=== PATIENT | female | born 2000 | race Two or more races ===

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

== ENCOUNTER 2021-03-14 09:50 | Emergency (ER) | payer OTHER ==
[2021-03-14] MEDS ORDERED: Ketorolac 30 MG/ML SDV IM ONE (10:59)
--- NOTE | 2021-03-14 11:01 | EDM.PDOC ---
ED HPI GENERAL MEDICAL PROBLEM - General Chief Complaint: Lower Extremity Injury/Pain Stated Complaint: RIGHT FOOT PAIN Time Seen by Provider: 03/14/21 10:57 Source of Information: Reports: Patient, Family, RN Notes Reviewed History Limitations: Reports: No Limitations - History of Present Illness INITIAL COMMENTS - FREE TEXT/NARRATIVE: 21-year-old female presents emergency department day complaint of right foot pain, she states large table at work landed on her foot right foot, she is experienced pain having difficulty ambulating. Right Feet Pain Score (Numeric/FACES): 9 - Related Data Allergies Allergy/AdvReac Type Severity Reaction Status Date / Time No Known Allergies Allergy Verified 03/15/20 20:20 Home Meds: Home Meds NK [No Known Home Meds] 03/15/20 [History] Past Medical History HEENT History: Reports: Impaired Vision Musculoskeletal History: Reports: Other (See Below) Other Musculoskeletal History: R foot pain Social & Family History - Tobacco Use Tobacco Use Status *Q: Never Tobacco User Review of Systems - Review of Systems Review Of Systems: See Below Constitutional: Reports: No Symptoms Musculoskeletal: Reports: Foot Pain ED EXAM, GENERAL - Physical Exam Exam: See Below Free Text/Narrative:: Examination of the right foot on appreciate any erythema there is no bruising th ere is no edema pedal pulses +2 she has full range of motion all digits Exam Limited By: No Limitations General Appearance: Alert, WD/WN, No Apparent Distress Course - Vital Signs Last Recorded V/S: Last Vital Signs Temp 97.2 F 03/14/21 10:51 Pulse 57 L 03/14/21 10:51 Resp 18 03/14/21 10:51 BP 118/53 L 03/14/21 10:51 Pulse Ox - Orders/Labs/Meds Orders: Active Orders 24 hr Category Date Time Status Foot Comp Min 3V Rt [CR] Stat Exams 03/14/21 10:59 Taken Meds: Medications Discontinued Medications Generic Name Dose Route Start Last Admin Trade Name John PRN Reason Stop Dose Admin Ketorolac Tromethamine 30 mg 03/14/21 10:59 03/14/21 11:05 Ketorolac 30 Mg/Ml Sdv IM 03/14/21 11:00 30 mg ONETIME ONE Administration Departure - Departure Time of Disposition: 11:28 Disposition: Home, Self-Care 01 Condition: Fair Clinical Impression: Contusion of foot, right Qualifiers: Encounter type: initial encounter Qualified Code(s): S90.31XA - Contusion of right foot, initial encounter - Discharge Information Instructions: Contusion, [id number] Referrals: PCP,None [Primary Care Provider] - Forms: ED Department Discharge, ED Return to Work/School Form Additional Instructions: Use Tylenol or Motrin as needed for pain control, please followup with your primary care provider in 3-5 days if not better, please call return to the emergency department with worsening of symptoms. Sepsis Event Note (ED) - Focused Exam Vital Signs: Vital Signs Temp Pulse Resp BP 03/14/21 10:51 97.2 F 57 L 18 118/53 L - My Orders Last 24 Hours: My Active Orders 03/14/21 10:59 Foot Comp Min 3V Rt [CR] Stat - Assessment/Plan Last 24 Hours: My Active Orders 03/14/21 10:59 Foot Comp Min 3V Rt [CR] Stat Plan: Assessment Acuity = acute Site and laterality = right foot pain consistent with contusion Etiology = trauma Manifestations = none Location of injury = work Lab values = foot x-ray, I did review films myself I cannot appreciate any acute process, the official read from radiology is pending Plan I did review the films myself I cannot appreciate any fracture treat with Tylenol and Motrin as needed for pain control follow-up primary care 3 to 5 days if not better This note was dictated using [employer] voice recognition software please call with any questions on syntax or grammar.
--- NOTE | 2021-03-15 11:31 | CR ---
FOOT RIGHT 3 views CLINICAL HISTORY:Injury FINDINGS: No fracture or osseous lesion seen. There is no radiopaque foreign body. Impression: No fracture
== END 2021-03-14 11:50 | disposition home or self-care (01) ==
LOC: JP.ED 09:50
DX: S90.31XA Contusion of right foot, initial encounter (principal); W20.8XXA Other cause of strike by thrown, projected or falling object, initial encounter; Y99.0 Civilian activity done for income or pay
CPT/HCPCS: 73630; 96372; 99283; J1885